=== PATIENT | female | born 1990 | race Hispanic/Latino ===

== ENCOUNTER 2020-12-29 13:49 | Outpatient (CLI) | payer OTHER ==
[2020-12-29 15:33] LABS: SARS-CoV-2 NAA Rapid Test Not Detected (NotDetected)
== END 2020-12-29 13:50 | disposition home or self-care (01) ==
LOC: CSHLAB 13:49
PROVIDERS: ATTEND Family Medicine
DX: Z20.822 Contact with and (suspected) exposure to COVID-19 (principal)
CPT/HCPCS: U0002

== ENCOUNTER 2020-12-30 05:16 | Inpatient (IN) | payer MEDICAID, OTHER ==
[2020-12-30] MEDS: Lactated Ringer's 1,000 ML IV SCH ×2 (06:17→07:18)
[2020-12-30] MEDS ORDERED: Promethazine HCl 25 MG/ML VIAL IM PRN ×2 (06:26→13:43)
[2020-12-30] MEDS ORDERED: Famotidine/PF 20 mg/2ml Vial SLOW IVP PRN (06:26)
[2020-12-30] MEDS ORDERED: CEFAZOLIN 2 GM in Premix Bag 1 BAG IVPB SCH (06:26)
[2020-12-30] MEDS ORDERED: Ondansetron PF 4 MG/2 ML Vial IVP PRN ×2 (06:26→13:43)
[2020-12-30] MEDS ORDERED: hydrALAZINE 20 MG/ML VIAL SLOW IVP PRN ×2 (06:26→13:43)
[2020-12-30] MEDS ORDERED: Bicitra 30 ML UDCUP PO PRN (06:26)
[2020-12-30 06:29] VITALS: BMI 32.1
[2020-12-30] MEDS ORDERED: Fentanyl 100 MCG/2 ML VIAL ONE (07:00)
[2020-12-30] MEDS ORDERED: Oxytocin 10 UNITS/ML VIAL ONE ×4 (07:00→09:01)
[2020-12-30] MEDS ORDERED: Morphine 4 MG/ML VIAL ONE (07:00)
[2020-12-30] MEDS ORDERED: PHENYLEPHRINE-NS 100 MCG/ML 10 ML SYRINGE ONE (07:15)
[2020-12-30 07:19] LABS: Mean Corpuscular HGB CONC 31.5 g/dL (32.0-36.0); Mean Corpuscular Hemoglobin 25.6 pg (27.0-33.0); Mean Corpuscular Volume 81.1 fl (81.6-98.3); Mean Platelet Volume 10.9 fl (7.4-10.4); Platelet Count 264 10x3/uL (150-450); RBC Distribution Width 19.6 % (11.5-14.5); Red Blood Cell (RBC) Count 3.91 10x6/uL (3.90-5.03); White Blood Cell (WBC) Count 8.6 10x3/uL (3.5-10.5)
[2020-12-30] MEDS ORDERED: Morphine PF 10 MG/10 ML VIAL ONE (07:32)
[2020-12-30 07:50] LABS: Hep B Surf Ag Non-Reactive S/CO (NonReactive); Syphilis Antibody Nonreactive (Nonreactive); Syphilis Antibody Index 0.03 S/CO (<1.00 Non-Reactive)
[2020-12-30 07:54] LABS: HBSAg Index 0.17 S/CO (0-0.99)
[2020-12-30] MEDS ORDERED: Methylergonovine 0.2 MG/ML VIAL ONE ×2 (08:08)
[2020-12-30] MEDS ORDERED: Tranexamic Acid 1,000 MG/10 ML VIAL ONE ×3 (08:18→08:40)
[2020-12-30] MEDS ORDERED: Promethazine HCl 25 MG/ML VIAL ONE (08:37)
[2020-12-30] MEDS ORDERED: Bisacodyl 10 MG SUPP PR PRN (13:43)
[2020-12-30] MEDS ORDERED: Meperidine HCl/PF 25 MG/ML VIAL IM PRN (13:43)
[2020-12-30] MEDS ORDERED: Lanolin Ointment 7 GM TUBE TOP PRN (13:43)
[2020-12-30] MEDS ORDERED: HYDROcodone/Acetaminophen 5/325 mg Tablet PO PRN ×2 (13:43)
[2020-12-30] MEDS ORDERED: Boostrix 0.5 ML (Tdap) VIAL IM ONE (13:43)
[2020-12-30] MEDS ORDERED: diphenhydrAMINE 25 MG CAP PO PRN (13:43)
[2020-12-30] MEDS ORDERED: Simethicone Chewable 80 MG TAB PO PRN (13:43)
[2020-12-30] MEDS ORDERED: NS w/ Oxytocin 30 units 500 ML IV SCH (13:43)
[2020-12-30] MEDS ORDERED: Docusate Calcium (SURFAK) 240 MG CAP PO SCH (14:00)
[2020-12-30] MEDS ORDERED: Prenatal Vitamin 1 TAB PO SCH (14:00)
[2020-12-30] MEDS ORDERED: Ferrous Sulfate 325 MG TAB PO SCH (14:00)
[2020-12-30] MEDS: Ketorolac Tromethamine 30 MG/ML VIAL IVP SCH ×2 (21:19→23:55)
[2020-12-30] MEDS: Docusate Calcium (SURFAK) 240 MG CAP PO SCH (23:55)
[2020-12-31] MEDS: Ferrous Sulfate 325 MG TAB PO SCH ×3 (00:06→21:34)
[2020-12-31] MEDS: Ketorolac Tromethamine 30 MG/ML VIAL IVP SCH ×2 (05:41→15:14)
[2020-12-31 07:00] LABS: Hemoglobin 9.2 g/dL (12.0-15.5); Mean Corpuscular HGB CONC 31.6 g/dL (32.0-36.0); Mean Corpuscular Hemoglobin 25.8 pg (27.0-33.0); Mean Corpuscular Volume 81.5 fl (81.6-98.3); Mean Platelet Volume 10.7 fl (7.4-10.4); Platelet Count 213 10x3/uL (150-450); RBC Distribution Width 19.6 % (11.5-14.5); Red Blood Cell (RBC) Count 3.57 10x6/uL (3.90-5.03); White Blood Cell (WBC) Count 12.1 10x3/uL (3.5-10.5)
[2020-12-31] MEDS: Prenatal Vitamin 1 TAB PO SCH (08:50)
[2020-12-31] MEDS: Docusate Calcium (SURFAK) 240 MG CAP PO SCH ×2 (08:50→21:34)
[2020-12-31] MEDS ORDERED: Ibuprofen 800 MG TAB PO SCH (15:15)
[2020-12-31] MEDS: Ibuprofen 800 MG TAB PO SCH ×2 (15:15→21:35)
[2021-01-01] MEDS: Ibuprofen 800 MG TAB PO SCH ×3 (05:15→21:27)
[2021-01-01] MEDS: Docusate Calcium (SURFAK) 240 MG CAP PO SCH ×2 (08:54→21:27)
[2021-01-01] MEDS: Ferrous Sulfate 325 MG TAB PO SCH ×2 (08:54→21:27)
[2021-01-01] MEDS: Prenatal Vitamin 1 TAB PO SCH (08:54)
[2021-01-02] MEDS: Ibuprofen 800 MG TAB PO SCH (05:15)
[2021-01-02 08:01] VITALS: BP 104/67; TEMP 98.3
[2021-01-02] MEDS: Docusate Calcium (SURFAK) 240 MG CAP PO SCH (08:08)
[2021-01-02] MEDS: Ferrous Sulfate 325 MG TAB PO SCH (08:08)
[2021-01-02] MEDS: Prenatal Vitamin 1 TAB PO SCH (08:08)
== END 2021-01-02 12:15 | disposition home or self-care (01) | DRG 787 ==
LOC: CSHLD 05:16 → CSHPP 20:20
PROVIDERS: ADMIT Family Medicine; ATTEND Family Medicine
PROC: 10D00Z1 Extraction of Products of Conception, Low, Open Approach (ICD-10-PCS; principal; 2020-12-30)
PROC: 0W3R0ZZ Control Bleeding in Genitourinary Tract, Open Approach (ICD-10-PCS; 2020-12-30)
DX: O34.211 Maternal care for low transverse scar from previous cesarean delivery (principal); O72.1 Other immediate postpartum hemorrhage; Z3A.39 39 weeks gestation of pregnancy; Z37.0 Single live birth; Z20.822 Contact with and (suspected) exposure to COVID-19
CPT/HCPCS: 36415; 51702; 85027; 86780; 86850; 86900; 86901; 87340; 90715; J0690; J1885; J2270; J2274; J2550; J3010; S0028